=== PATIENT | male | born 1980 | race Caucasian/White ===

== ENCOUNTER → 2016-12-07 | Outpatient (CLI) | payer OTHER ==
[~2016-12-07] MED LIST: GAVISCON F1 TAB.CHEW; ZOFRAN 4MG T4 MG/TAB PO
== END ==
LOC: COL.RAD 08:30
DX: R22.1 Localized swelling, mass and lump, neck (principal)
CPT/HCPCS: Q9967

== ENCOUNTER → 2016-12-12 | Outpatient (CLI) | payer OTHER ==
[~2016-12-12] VITALS: Ht 180.3 cm; Wt 101.6 kg
[2016-12-12 09:51] VITALS: BP 148/95; PULSE 75
[2016-12-12 10:55] VITALS: BP 144/78; PULSE 70
[2016-12-12 11:10] VITALS: BP 131/88; PULSE 73
== END ==
LOC: COL.RAD 09:37
DX: R22.1 Localized swelling, mass and lump, neck (principal)
CPT/HCPCS: 25757

== ENCOUNTER 2017-05-20 15:30 | Outpatient (RCR) | payer OTHER ==
[2017-02-25 17:37] VITALS: BP 106/57; PULSE 63; TEMP 98.6
[2017-03-08 14:16] VITALS: BP 110/69; PULSE 81; TEMP 98.2
[2017-04-08 15:24] VITALS: BP 123/70; PULSE 77; TEMP 98.1
[2017-04-22 15:20] VITALS: BP 117/45; PULSE 71; TEMP 98.7
[2017-05-06 15:15] VITALS: BP 100/55; PULSE 67; TEMP 98.1
[~2017-05-20] VITALS: Ht 180.3 cm; Wt 106.8 kg
[2017-05-20 15:20] VITALS: BP 102/52; PULSE 82; TEMP 98.8
== END 2017-05-26 ==
LOC: EUO
DX: C81.10 Nodular sclerosis Hodgkin lymphoma, unspecified site (principal)
CPT/HCPCS: J2505

== ENCOUNTER 2017-06-03 16:08 | Outpatient (RCR) | payer OTHER ==
[~2017-06-03] VITALS: Ht 180.3 cm; Wt 104.5 kg
[2017-06-03 15:14] VITALS: BP 112/54; PULSE 70; TEMP 98.2
== END 2017-09-01 ==
LOC: EUO
DX: C81.10 Nodular sclerosis Hodgkin lymphoma, unspecified site (principal); Z79.899 Other long term (current) drug therapy
CPT/HCPCS: J2505